=== PATIENT | female | born 1950 | race Caucasian/White ===

== ENCOUNTER 2017-01-07 08:52 | Day surgery (SDC) | payer OTHER ==
[~2017-01-07] VITALS: Ht 168.9 cm; Wt 96.2 kg
[~2017-01-07 08:52] MED LIST: AMOXICILLIN500 M1 PO; ASPIRIN EC325 M2 PO; ASPIRIN325 MG PO; ASPIRIN81 M2 PO; ATORVASTATIN CA80 MG PO; COREG3.125 M1 PO; Coumadin,Jantoven PO; DIOVAN HCT 81 TABLET PO; ECOTRIN81 M1 PO; EFFIENT10 MG PO; Ecotrin PO; Effient PO; IMDUR120 MG PO; IMDUR60 MG PO; ISOSORBIDE MON120 M1 PO; ISOSORBIDE MONO60 MG PO; LEVOTHYROXINE75 MCG PO; LIPITOR80 MG PO; LOPRESSOR12.5 MG PO; LOPRESSOR25 MG PO; NORVASC10 MG PO; NORVASC2.5 MG PO; PLAVIX75 MG PO; POTASSIUM CHLOR8 ME3 PO; PRINZIDE 10-121 EACH PO; PROTONIX40 MG PO; SERTRALINE HCL50 MG PO; SIMVASTATIN40 M1 PO; SIMVASTATIN40 MG PO; VALIUM5 MG PO; VENTOLIN HFA18 GM IH; VICODIN 5-3001 EACH PO; VITAMIN D31000 UNIT PO; Valium PO; XANAX0.25 MG PO; Xanax PO; ZESTRIL,PRINIVI10 M1 PO; ZETIA10 MG PO; Zocor PO
[2017-01-07 10:08] LABS: HEMATOCRIT 39.6 % (36.0-46.0); MCH 29.2 PG (29.0-34.0); MCHC 33.6 G/DL (30.0-36.0); MCV 86.8 FL (83-99); MEAN PLAT.VOLUME 10.5 uM^3 (9.5-12.4); PLATELET COUNT 282 K/uL (156-360); RBC DIS.WIDTH-CV 13.3 % (11.8-14.6); RED BLOOD COUNT 4.56 M/uL (3.80-5.20)
[2017-01-07 10:41] LABS: ANION GAP 8 MEQ/L (2-14); CHLORIDE 105 MEQ/L (99-109); GFR ESTIMATE (CALCULATED) > 59 mL/min/; GLUCOSE 112 mg/dL (70-99); POTASSIUM 3.7 MEQ/L (3.7-5.4); SAMPLE HEMOLYSIS CHECK 0; SAMPLE ICTERIC CHECK 0; SAMPLE LIPEMIA CHECK 0; SODIUM 142 MEQ/L (136-147); UREA NITROGEN (BUN) 11 mg/dL (9-23)
== END 2017-01-07 15:55 | disposition home or self-care (01) ==
LOC: CATH 08:52
PROVIDERS: Internal Medicine Cardiovascular Disease
DX: I25.119 Atherosclerotic heart disease of native coronary artery with unspecified angina pectoris (principal); Z95.5 Presence of coronary angioplasty implant and graft; E78.5 Hyperlipidemia, unspecified; I10 Essential (primary) hypertension; I25.2 Old myocardial infarction; Z87.891 Personal history of nicotine dependence; Z79.02 Long term (current) use of antithrombotics/antiplatelets
CPT/HCPCS: 80048; 85027; C1769; C1887; J1644; J2250; J3010